=== PATIENT | female | born 1955 | race Caucasian/White ===

== ENCOUNTER 2018-02-03 02:01 | Outpatient (CLI) | payer BC, SELFPAY ==
[2018-02-03 08:42] LABS: HCT 40.5 % (36.0-46.0); HGB 13.8 g/dL (12.0-15.5); Mean Corp. HGB Concentration 34.1 g/dL (32.0-36.0); Mean Corpuscular Hemoglobin 30.9 pg (27.0-33.0); Mean Corpuscular Volume 90.8 fL (80-95); Mean Platelet Volume 10.5 fL (8.0-11.0); Platelet Count 248 x1000/uL (130-400); RBC 4.46 m/cumm (4.00-5.20); RBC Distribution Width 12.5 % (11.7-14.6); White Blood Cell Count 6.19 k/cumm (4.4-10.8)
[2018-02-03 10:12] LABS: Cholesterol 210 mg/dL (50-200); HDL Cholesterol 101 mg/dL (40-60); LDL CHOLESTEROL 100 mg/dL (<100); Triglyceride 43 mg/dL (30-150)
== END 2018-02-03 02:21 ==
PROVIDERS: PCP Family Medicine
DX: E78.5 Hyperlipidemia, unspecified (principal); M25.50 Pain in unspecified joint
CPT/HCPCS: 36415; 80061; 83721; 85027

== ENCOUNTER 2018-03-31 01:03 | Outpatient (CLI) | payer BC, SELFPAY ==
[2018-04-01 10:16] LABS: HBs Antibody, Qual Negative; HBs Antibody, Quant <3.1 mIU/mL; Hepatitis B Core Antibody Negative (NEGAT); Hepatitis B surface Ag Negative (NEGAT); Hepatitis C Ab w Rflx HCV PCR Negative (NEGAT)
[2018-04-01 11:40] LABS: Lyme Ab w Rflx to Lyme Confirm Negative
== END 2018-03-31 01:23 ==
PROVIDERS: PCP Family Medicine; Visit Provider Family Medicine
DX: M79.10 Myalgia, unspecified site (principal); Z11.59 Encounter for screening for other viral diseases; Z01.84 Encounter for antibody response examination
CPT/HCPCS: 36415; 86704; 86706; 86803; 87340; 86618

== ENCOUNTER 2021-09-18 09:08 | Outpatient (CLI) | payer OTHER, SELFPAY | END 2021-09-18 09:09 | disposition home or self-care (01) | LOC: DI.CM 09:10 | PROVIDERS: PCP Family Medicine; Visit Provider Nurse Practitioner Family | DX: R69 Illness, unspecified (principal) | CPT/HCPCS: 93010 ==

== ENCOUNTER 2022-08-27 05:30 | Outpatient (CLI) | payer OTHER, SELFPAY ==
[2022-08-27 12:22] LABS: Abs Immature Grans 0.01 10^3/uL (0.0-0.06); Absolute Basophil Count 0.04 10^3/uL (0.0-0.2); Absolute Eosinophil Count 0.17 10^3/uL (0.0-0.7); Absolute Lymphocyte Count 1.67 10^3/uL (1.2-3.4); Absolute Monocyte Count 0.47 10^3/uL (0.1-0.8); Absolute Neutrophil Count 2.64 10^3/uL (1.2-6.7); Basophils % 0.8; Eosinophils % 3.4; HCT 39.2 % (36.0-46.0); Immature Grans % 0.2; Lymphocytes % 33.4; MCH 30.4 pg (27.0-33.0); MCHC 33.2 % (32.0-36.0); MCV 92 fL (80-95); MPV 11.2 fL (8.0-11.0); Monocytes % 9.4; Neutrophils % 52.8; Platelet Count 227 10^3/uL (130-400); RBC 4.28 10^6/uL (3.93-5.22); RDW 12.8 % (11.7-14.6); RDW-SD 42.9 fL
[2022-08-27 12:44] LABS: Anion Gap 5.1 mmol/L (3-11); BUN 11 mg/dL (7-18); C-Reactive Protein 0.17 mg/dL (0.0-0.3); CO2 29.9 mmol/L (21.0-32.0); CREATININE 0.8 mg/dL (0.55-1.02); Calculated LDL 90 mg/dL (<100); Chloride 103 mmol/L (98-107); Cholesterol 205 mg/dL (<200); Estimated GFR 80.21 (mL/min/1.73m2); Glucose 88 mg/dL (74-106); HDL Cholesterol 110 mg/dL (40-60); Potassium 3.7 mmol/L (3.5-5.1); Sodium 138 mmol/L (136-145); Triglyceride 27 mg/dL (<150)
[2022-08-29 16:16] LABS: Lyme Ab w Rflx to Lyme Confirm Negative (Negative)
== END 2022-08-27 05:31 | disposition home or self-care (01) ==
LOC: LOS 05:32
PROVIDERS: PCP Family Medicine; Visit Provider Family Medicine
DX: Z00.00 Encounter for general adult medical examination without abnormal findings (principal); I77.6 Arteritis, unspecified; M19.90 Unspecified osteoarthritis, unspecified site
CPT/HCPCS: 36415; 80048; 80061; 85025; 86140; 86618

== ENCOUNTER → 2023-07-03 00:55 | Outpatient (CLI) | payer OTHER, SELFPAY ==
--- NOTE | 2023-07-03 07:30 | DI.DEXA_ITS ---
Exam(s) XR DEXA BONE DENSITY W/WO JOIE EXAM: XR DEXA BONE DENSITY W/WO JOIE CLINICAL HISTORY: screening FOR OSTEOPOROSIS IN POSTMENOPAUSAL WOMAN,Z78.0 TECHNIQUE: COMPARISON: No exams were available for comparison FINDINGS: Lateral Spine Image: Unremarkable. No compression deformities identified. Left hip: Total T-Score: -1.1 Total Z-Score: 0.3 T- and Z-scores: Findings are consistent with osteopenia. Lumbar Spine: Total T-Score: -1.9 Total Z-Score: 0.2 T- and Z-scores: Findings are consistent with osteopenia. There is osteoporosis in the L3 vertebral body with a T-score of -2.5. IMPRESSION: Osteoporosis in the lumbar spine as described above.
== END ==
PROVIDERS: PCP Family Medicine; Visit Provider Family Medicine
DX: Z78.0 Asymptomatic menopausal state
CPT/HCPCS: 77080

== ENCOUNTER 2025-01-11 13:51 | Outpatient (CLI) | payer MEDICARE, BC, SELFPAY ==
[2025-01-11 16:41] LABS: Anion Gap 7.5 mmol/L (3-11); BUN 15 mg/dL (7-18); CO2 29.5 mmol/L (21.0-32.0); Calcium 8.9 mg/dL (8.5-10.1); Chloride 101 mmol/L (98-107); Estimated GFR 92.98 (mL/min/1.73m2); Glucose 99 mg/dL (74-106); Potassium 4.0 mmol/L (3.5-5.1); Sodium 138 mmol/L (136-145)
== END 2025-01-11 13:52 | disposition home or self-care (01) ==
LOC: LOS 13:52
PROVIDERS: PCP Family Medicine; Visit Provider Family Medicine
DX: Z13.1 Encounter for screening for diabetes mellitus (principal)
CPT/HCPCS: 36415; 80048

== ENCOUNTER → 2025-01-24 09:55 | Outpatient (BNVA) | payer MEDICARE, BC, SELFPAY | PROVIDERS: PCP Family Medicine; Referring Provider Family Medicine; Visit Provider Podiatrist | DX: L60.3 Nail dystrophy (principal); B35.1 Tinea unguium; M21.611 Bunion of right foot; M21.612 Bunion of left foot; M72.2 Plantar fascial fibromatosis | CPT/HCPCS: 11755 ==

== ENCOUNTER → 2025-02-15 10:22 | Outpatient (BNVA) | payer MEDICARE, BC, SELFPAY | PROVIDERS: PCP Family Medicine; Referring Provider Family Medicine; Visit Provider Podiatrist | DX: L60.3 Nail dystrophy (principal); B35.1 Tinea unguium; M21.611 Bunion of right foot; M21.612 Bunion of left foot | CPT/HCPCS: 99213 ==